=== PATIENT | female | born 1995 | race Caucasian/White ===

== ENCOUNTER 2019-04-11 22:40 | Emergency (ER) | payer BC, OTHER ==
[2019-04-11 22:47] VITALS: BP 110/78
[2019-04-12] MEDS ORDERED: KETOROLAC TROMETHAMINE INJ/PF 30 MG/1 ML SDV IV ONE (00:45)
[2019-04-12] MEDS ORDERED: ACETAMINOPHEN 325 MG TABLET PO ONE (00:46)
--- NOTE | 2019-04-12 00:51 | ER Document Report ---
ED GI/ - General Chief Complaint: Flank Pain Stated Complaint: FLANK PAIN,FEVER Time Seen by Provider: 04/12/19 00:40 Primary Care Provider: INDIO BLACK JR, MD [Primary Care Provider] - Follow up as needed Notes: Patient is a 23-year-old female that comes to the emergency department for chief complaint of painful urination and urinary frequency for the past couple days, however today she developed a fever and she has slowly worsening left flank pain as well. She states she feels like she is getting a kidney infection. She denies sudden onset of pain or severe pain, she states it feels like pressure. She denies , vomiting. She denies history of kidney stones, she denies any daily medications or diagnosed medical problems. TRAVEL OUTSIDE OF THE [place] IN LAST 30 DAYS: No - Related Data Allergies/Adverse Reactions: No Known Allergies Allergy (Unverified 04/12/19 01:45) Past Medical History - General Information source: Patient - Social History Smoking Status: Never Smoker Frequency of alcohol use: None Drug Abuse: None Lives with: Family Family History: Reviewed & Not Pertinent - Medical History Medical History: Negative Surgical Hx: Negative - Immunizations Hx Diphtheria, Pertussis, Tetanus Vaccination: Yes Review of Systems - Review of Systems Constitutional: See HPI EENT: No symptoms reported Cardiovascular: No symptoms reported Respiratory: No symptoms reported Gastrointestinal: See HPI Genitourinary: See HPI Female Genitourinary: No symptoms reported Musculoskeletal: No symptoms reported Skin: No symptoms reported Hematologic/Lymphatic: No symptoms reported Neurological/Psychological: No symptoms reported Physical Exam - Vital signs Vitals: Temp Pulse Resp BP Pulse Ox 101.4 F H 104 H 18 110/78 100 04/11/19 22:46 04/11/19 22:46 04/11/19 22:46 04/11/19 22:46 04/11/19 22:46 - Notes Notes: GENERAL: Alert, interacts well. No acute distress. HEAD: Normocephalic, atraumatic. EYES: Pupils equal, round, and reactive to light. Extraocular movements intact. ENT: Oral mucosa moist, tongue midline. Oropharynx unremarkable. Airway patent. NECK: Full range of motion. Supple. Trachea midline. LUNGS: Clear to auscultation bilaterally, no wheezes, rales, or rhonchi. No respiratory distress. HEART: Regular rate and rhythm. No murmur ABDOMEN: Soft, non-tender. Non-distended. Bowel sounds present in all 4 quadrants. GENITOURINARY: Deferred EXTREMITIES: Moves all 4 extremities spontaneously. No edema, normal radial and dorsalis pedis pulses bilaterally. No cyanosis. BACK: no cervical, thoracic, lumbar midline tenderness. There is some left- sided CVA tenderness. No saddle anesthesia, normal distal neurovascular exam. Moves all extremities in full range of motion. NEUROLOGICAL: Alert and oriented x3. Normal speech. Cranial nerves II through XII grossly intact. PSYCH: Normal affect, normal mood. SKIN: Warm, dry, normal turgor. No rashes or lesions noted. Course - Re-evaluation Re-evalutation: Patient febrile on initial evaluation, however she is very well-appearing. She does have left-sided CVA tenderness but this is not severe. She actually has no abdominal tenderness on exam, abdomen is completely benign. CBC unremarkable, chemistry unremarkable, urinalysis indicates infection but is not very impressive. Because of her fever I did discuss other testing including pelvic exam to rule out PID, however this was declined. She denies history of IV drug abuse, she does not have any neurological deficits. Patient states she did have specific symptoms of UTI and these have progressed, I do still suspect she has pyelonephritis. Patient given dose of Rocephin, started on antibiotics, discussed follow-up and return precautions. Patient states understanding and agreement. - Vital Signs Vital signs: Temp Pulse Resp BP Pulse Ox 101.4 F H 104 H 18 110/78 97 04/11/19 22:46 04/11/19 22:46 04/11/19 22:46 04/11/19 22:46 04/12/19 03:00 - Laboratory Result Diagrams: 04/12/19 01:00 04/12/19 01:00 Laboratory results interpreted by me: 04/12/19 04/12/19 04/12/19 01:00 01:00 01:00 Lymph % (Auto) 8.9 L Sodium 136.8 L Ur Leukocyte Esterase SMALL H Discharge - Discharge Clinical Impression: Flank pain, Lower abdominal pain, Dysuria Condition: Stable Disposition: HOME, SELF-CARE Prescriptions: Cephalexin Monohydrate [Keflex 500 mg Capsule] 500 mg PO BID 7 Days #14 capsule Referrals: INDIO BLACK JR, MD [Primary Care Provider] - Follow up as needed
[2019-04-12 01:29] LABS: ABSOLUTE LYMPHOCYTES (AUTO) 0.6 10^3/uL (0.5-4.7); ABSOLUTE MONOCYTES (AUTO) 0.9 10^3/uL (0.1-1.4); ABSOLUTE NEUT (AUTO) 5.3 10^3/uL (1.7-8.2); BASOPHILS % (AUTO) 0.2 % (0-2); EOSINOPHILS % (AUTO) 0.2 % (0-6); HEMATOCRIT 37.5 % (36.0-47.0); HEMOGLOBIN 12.8 g/dL (12.0-15.5); LYMPHOCYTES % (AUTO) 8.9 % (13-45); MEAN CORPUSCULAR HEMOGLOBIN 30.9 pg (27.0-33.4); MEAN CORPUSCULAR HGB CONC 34.2 g/dL (32.0-36.0); MEAN CORPUSCULAR VOLUME 90 fl (80-97); MONOCYTES % (AUTO) 12.7 % (3-13); PLATELET COUNT 262 10^3/uL (150-450); RED BLOOD COUNT 4.15 10^6/uL (3.72-5.28); RED CELL DISTRIBUTION WIDTH 12.6 % (11.5-14.0); TOTAL CELLS COUNTED % (AUTO) 100 %; WHITE BLOOD COUNT 6.8 10^3/uL (4.0-10.5)
[2019-04-12 01:53] LABS: ALBUMIN 4.6 g/dL (3.5-5.0); ALKALINE PHOSPHATASE 93 U/L (38-126); ANION GAP 10 (5-19); ASPARTATE AMINO TRANSFERASE 24 U/L (14-36); BILIRUBIN,DIRECT 0.1 mg/dL (0.0-0.4); BILIRUBIN,TOTAL 0.4 mg/dL (0.2-1.3); BLOOD UREA NITROGEN 11 mg/dL (7-20); CALCIUM 9.8 mg/dL (8.4-10.2); CARBON DIOXIDE 29 mmol/L (22-30); CHLORIDE 98 mmol/L (98-107); GLUCOSE 96 mg/dL (75-110); POTASSIUM 3.9 mmol/L (3.6-5.0); TOTAL PROTEIN 7.4 g/dL (6.3-8.2)
[2019-04-12 01:59] LABS: APPEARANCE,URINE CLEAR; BILIRUBIN,URINE NEGATIVE (NEGATIVE); COLOR,URINE STRAW; GLUCOSE, URINE NEGATIVE (NEGATIVE); KETONES,URINE NEGATIVE (NEGATIVE); LEUKOCYTE ESTERASE,URINE SMALL (NEGATIVE); NITRITE,URINE NEGATIVE (NEGATIVE); PROTEIN,URINE NEGATIVE (NEGATIVE); URINE SPECIFIC GRAVITY 1.003; UROBILINOGEN,URINE NEGATIVE mg/dL (<2.0)
[2019-04-12] MEDS ORDERED: CEFTRIAXONE 1 GM/D5W RTU 1 GM/50 ML RTUPB IV ONE (02:36)
== END 2019-04-12 03:27 | disposition home or self-care (01) ==
LOC: ER 22:40
DX: R10.30 Lower abdominal pain, unspecified (principal); R30.0 Dysuria; R50.9 Fever, unspecified
CPT/HCPCS: 99284; 96375; 96365; 36415; 87040; 87086; 85025; 81025; 87088; 80053; 81001; 87186; J1885; J0696